=== PATIENT | female | born 1995 | race Caucasian/White ===

== ENCOUNTER 2019-11-28 09:27 | Outpatient (CLI) | payer OTHER ==
--- NOTE | 2019-11-28 11:52 | ULT ---
THYROID ULTRASOUND: Date: 11/28/2019 INDICATION: Evaluate thyroid bed. Thyroidectomy in 2013 due to cancer. FINDINGS: No residual thyroid tissue. No evidence of mass or adenopathy. IMPRESSION: Unremarkable ultrasound of thyroid bed. No evidence of residual thyroid tissue identified. POS: [id number]
== END 2019-11-28 09:28 | disposition home or self-care (01) ==
LOC: SCSULT 09:27
PROVIDERS: ATTEND Internal Medicine Endocrinology, Diabetes & Metabolism
DX: C73 Malignant neoplasm of thyroid gland (principal)
CPT/HCPCS: 76536